=== PATIENT | female | born 1965 | race Caucasian/White ===

== ENCOUNTER 2016-12-24 17:51 | Emergency (ER) | payer OTHER ==
[~2016-12-24] VITALS: Ht 162.6 cm; Wt 72.0 kg
[2016-12-24 17:55] VITALS: Ht 162.6 cm; Wt 72.0 kg
[2016-12-24] MEDS ORDERED: ONDANSETRON 4 MG INJ IV STA (20:51)
[2016-12-24] MEDS ORDERED: morphine 4 MG/ML VIAL IV STA (20:51)
[2016-12-24] MEDS ORDERED: SOD CHLORIDE 0.9% 1,000 ML IV STA (20:51)
--- NOTE | 2016-12-24 20:51 | ERD ---
ER Documentation Chief Complaint Date/Time DATE: 12/24/16 TIME: 20:51 Chief Complaint ap x 1 week HPI 51-year-old female history of diabetes mellitus type 2, breast cancer on tamoxifen, hyperlipidemia, status post remote cholecystectomy ambulatory to the ED complaining of a one-week history of worsening, moderate, sharp and crampy, generalized abdominal pain which localizes to the epigastrium and right greater than left upper quadrant. Nausea but no vomiting. Loose stools but no actual diarrhea or constipation. No relieving or exacerbating factors. Denies dysuria , polyuria, hematuria or flank pain. No vaginal discharge or bleeding. Denies chest pain or palpitations. No shortness of breath or cough. No fevers or chills. ROS All systems reviewed and are negative except as per history of present illness. Medications Home Meds Reported Medications Tamoxifen Citrate* (Tamoxifen Citrate*) 20 Mg Tab, 20 MG PO DAILY, TAB 12/24/16 Ranitidine Hcl* (Ranitidine Hcl*) 150 Mg Tablet, 300 MG PO DAILY, #30 TAB 12/24/16 Atorvastatin* (Atorvastatin*) 40 Mg Tablet, 40 MG PO DAILY, #30 TAB 12/24/16 Metformin Hcl* (Metformin Hcl*) 1,000 Mg Tablet, 1000 MG PO WITH BREAKFAST DINNE , #60 TAB 12/24/16 Allergies Allergies: Coded Allergies: No Known Allergy (Unverified , 12/24/16) PMhx/Soc Reviewed in chart. As per HPI. History of Surgery: Yes (Cholecystectomy) Hx Neurological Disorder: No Hx Respiratory Disorders: No Hx Cardiac Disorders: No Hx Psychiatric Problems: No Hx Miscellaneous Medical Probl: Yes (Diabetes mellitus type 2, breast cancer) Hx Alcohol Use: No Hx Substance Use: No Hx Tobacco Use: No FmHx Multiple family members with diabetes but no stroke or heart disease. Physical Exam Vitals Vital Signs Date Time Temp Pulse Resp B/P Pulse Ox O2 Delivery O2 Flow Rate FiO2 12/24/16 21:06 98.1 78 17 121/58 99 Room Air 12/24/16 17:55 98.1 90 18 129/60 99 Physical Exam Const: Alert, moderate distress due to pain Head: Atraumatic Eyes: Normal Conjunctiva ENT: Normal External Ears, Nose and Mouth. Neck: Full range of motion. Nontender. No lymphadenopathy Resp: Breath sounds are equal and clear to auscultation bilaterally Cardio: Regular rate and rhythm, no murmurs Abd: Soft, obese, diffuse upper abdominal tenderness localized to the epigastrium. No rebound or guarding. Small, nontender umbilical hernia. No masses or abnormal pulsations. Skin: No petechiae or rashes Back: No midline or flank tenderness Ext: No cyanosis, or edema Neur: Awake and alert. No focal deficit observed. Psych: Normal Mood and Affect Result Diagram: 12/24/16209912/24/162099 Results 24 hrs Laboratory Tests Test 12/24/16 21:00 White Blood Count 9.910^3/ul Red Blood Count 4.5010^6/ul Hemoglobin 12.8g/dl Hematocrit 39.4% Mean Corpuscular Volume 87.6fl Mean Corpuscular Hemoglobin 28.4pg Mean Corpuscular Hemoglobin Concent 32.5g/dl Red Cell Distribution Width 13.2% Platelet Count 27895^3/UL Mean Platelet Volume 13.4fl Neutrophils % 60.0% Lymphocytes % 26.0% Monocytes % 4.0% Eosinophils % 10.0% Neutrophils # 5.910^3/ul Lymphocytes # 2.610^3/ul Monocytes # 0.410^3/ul Eosinophils # 1.010^3/ul Urine Color YELLOW Urine Clarity CLEAR Urine pH 5.5 Urine Specific [place] >=1.030 Urine Ketones 15 Urine Nitrite NEGATIVE Urine Bilirubin NEGATIVE Urine Urobilinogen 0.2 E.U./dL Urine Leukocyte Esterase TRACE Urine Microscopic RBC NONE SEEN/HPF Urine Microscopic WBC 2-5/HPF Urine Squamous Epithelial Cells MODERATE Urine Hemoglobin NEGATIVE Urine Glucose NEGATIVE% Urine Total Protein TRACE Sodium Level 142mmol/L Potassium Level 4.0mmol/L Chloride Level 106mmol/L Carbon Dioxide Level 26mmol/L Anion Gap 14 Blood Urea Nitrogen 12mg/dl Creatinine 0.61mg/dl Glucose Level 166mg/dl Calcium Level 10.6mg/dl Total Bilirubin 0.1mg/dl Direct Bilirubin 0.00mg/dl Indirect Bilirubin 0.1mg/dl Aspartate Amino Transf (AST/SGOT) 93IU/L Alanine Aminotransferase (ALT/SGPT) 131IU/L Alkaline Phosphatase 164IU/L Total Protein 7.8g/dl Albumin 4.4g/dl Globulin 3.40g/dl Albumin/Globulin Ratio 1.29 Lipase 243U/L Current Medications Medications (Trade) Dose Ordered Sig/Brian Route PRN Reason Start Time Stop Time Status Last Admin Dose Admin Sodium Chloride (NS) 1,000 ml @ 1,000 mls/hr Q1H STAT IV 12/24/16 20:51 12/24/16 21:50 DC 12/24/16 21:04 Morphine Sulfate (morphine) 4 mg ONCE STAT IV 12/24/16 20:51 12/24/16 20:53 DC 12/24/16 21:03 Ondansetron HCl (Zofran Inj) 4 mg ONCE STAT IV 12/24/16 20:51 12/24/16 20:53 DC 12/24/16 21:03 IV Flush 10 ml 10 ml STK-MED ONCE .ROUTE 12/24/16 21:58 12/24/16 21:59 DC 12/24/16 22:18 Sodium Chloride (NS) 100 ml @ ud STK-MED ONCE .ROUTE 12/24/16 21:58 12/24/16 21:59 DC 12/24/16 22:18 Iohexol (Omnipaque 300mg/ ml) 150 ml STK-MED ONCE .ROUTE 12/24/16 21:58 12/24/16 21:59 DC 12/24/16 22:18 PROCEDURE: CT Abdomen and Pelvis with Contrast CLINICAL INDICATION: No abdominal pain TECHNIQUE: Transaxial images were obtained through the abdomen and pelvis on a multi-slice scanner following the intravenous administration of iodinated contrast. No oral contrast had previously been given. Sagittal and coronal re- formations were subsequently reconstructed. One or more of the following dose reduction techniques were used: - Automated exposure control. - Adjustment of the mA and/or kV according to patient size. - Use of iterative reconstruction technique. Radiation dose: CTDIvol = 19.03 mGy; DLP = 1090.49 mGy-cm. COMPARISON: No prior studies are available for comparison. FINDINGS: Lung bases: Compressive changes with interstitial prominence is noted at the lung bases Liver: The liver is enlarged and mildly diffusely fatty infiltrated with no focal lesion identified. The hepatic and portal veins appear patent. Gallbladder: Surgical lola are seen in the gallbladder fossa. Bile ducts: The intra and extrahepatic bile ducts are normal in caliber. Pancreas: Appears normal with no mass or inflammation evident. Spleen: Normal in size with no focal lesion. Adrenals: Normal with no mass identified. Kidneys, ureters and bladder: A 5 mm cyst is seen within the medial midpole of the left kidney but the kidneys are otherwise unremarkable without evidence of urinary outflow obstruction. There is no perinephric stranding. The ureters are normal in caliber and no ureteroliths are identified. The bladder appears unremarkable. Reproductive organs: The uterus deviates to the right of midline. No adnexal mass is evident. Stomach, bowel, and mesentery: The stomach appears unremarkable. The small bowel gas pattern reflects an ileus most evident within the left upper quadrant were there is slightly greater gaseous distension of a couple of segments of jejunum. A few colonic diverticuli are evident. There is no evidence of bowel obstruction or inflammation. Appendix: A normal vermiform appendix is evident. Peritoneum: No free intraperitoneal fluid or air is identified. A small fat containing umbilical hernia is evident. Aorta: Normal in caliber with no aneurysmal dilatation. IVC: Unremarkable. Lymph nodes: No pathologically enlarged nodes are identified. Osseous structures: Mild degenerative disk and endplate changes are noted L5-S1. IMPRESSION: 1. Hepatomegaly with mild diffuse fatty infiltration but with no focal lesion identified. 2. There is a mild ileus most evident within the left upper quadrant. There are a few colonic diverticuli but there is no evidence of bowel obstruction or inflammation with a normal-appearing vermiform appendix. 3. Status post cholecystectomy with no bile duct dilatation or pancreatic pathology. 4. A 5 mm cyst is seen within the medial midpole left kidney but there is no evidence of urinary outflow obstruction or ureterolithiasis. 5. There is no free intraperitoneal fluid or air. 6. Small fat containing umbilical hernia. Physician Camila Date Time Electronically viewed and signed by Physician Camila on 12/24/2016 23:05 RH/ Procedures/MDM DOCUMENTS REVIEWED: ED nurse, no prior records available ED COURSE: Normal saline 1 L. Morphine 4/Zofran 4 IV. MEDICAL DECISION MAKIN-year-old female history of diabetes mellitus type 2 , breast cancer on tamoxifen, hyperlipidemia, status post remote cholecystectomy ambulatory to the ED complaining of a one-week history of worsening, moderate, sharp and crampy, generalized abdominal pain which localizes to the epigastrium and right greater than left upper quadrant. CT is unremarkable. There is no evidence of metastatic disease, bowel obstruction, obstructive uropathy or other acute intra-abdominal process including but not limited to appendicitis and diverticulitis. Possible gastritis/GERD versus peptic ulcer disease. Pain resolved with intravenous hydration and antiemetics. Stable for discharge with precautionary instructions, proton pump inhibitors and outpatient follow-up as counseled. Patient understands that the etiology of her symptoms is not established and urgent outpatient follow-up is mandatory. Counseled patient and family regarding diagnostic workup, diagnosis and need for followup. Understands to return to ED if symptoms recur, worsen or any other concerns. Departure Diagnosis: Primary Impression: Acute generalized abdominal pain Additional Impressions: Abdominal pain of unknown etiology History of breast cancer in female Diabetes mellitus type 2 in obese Condition: Stable ASHVIN GARCÍA MD Dec 24, 2016 20:51
[2016-12-24 21:12] LABS: ADD SCAN DIFF NO
[2016-12-24 21:15] LABS: ADD UMIC YES; URINE BILIRUBIN (Dip) NEGATIVE (NEGATIVE); URINE BLOOD (Dip) NEGATIVE (NEGATIVE); URINE COLOR YELLOW (YELLOW); URINE GLUCOSE (Dip) NEGATIVE (NEGATIVE); URINE KETONES (Dip) 15 (NEGATIVE); URINE LEUKOCYTE ESTERASE (Dip) TRACE (NEGATIVE); URINE NITRITE (Dip) NEGATIVE (NEGATIVE); URINE TOTAL PROTEIN (Dip) TRACE (NEGATIVE); URINE UROBILINOGEN (Dip) 0.2 E.U./dL (0.1-1.0)
[2016-12-24 21:20] LABS: ABNORMAL IP MESSAGE 1; HEMATOCRIT 39.4 % (37.0-47.0); HEMOGLOBIN 12.8 g/dl (12.0-16.0); MEAN CORPUSCULAR HEMOGLOBIN 28.4 pg (29.0-33.0); MEAN CORPUSCULAR HGB CONC 32.5 g/dl (32.0-37.0); MEAN CORPUSCULAR VOLUME 87.6 fl (82.0-101.0); MEAN PLATELET VOLUME 13.4 fl (7.4-10.4); PLATELET COUNT 248 10^3/UL (140-415); RED CELL DISTRIBUTION WIDTH 13.2 % (11.5-14.5); WHITE BLOOD COUNT 9.9 10^3/ul (4.8-10.8)
[2016-12-24 21:23] LABS: SQUAMOUS EPITHELIAL CELL,UR MODERATE; URINE RBCS NONE SEEN /HPF (0)
[2016-12-24 21:35] LABS: ALBUMIN 4.4 g/dl (3.3-4.9); ALBUMIN/GLOBULIN RATIO 1.29; BILIRUBIN,INDIRECT 0.1 mg/dl (0-1.1); BILIRUBIN,TOTAL 0.1 mg/dl (0.2-1.3); CALCIUM 10.6 mg/dl (8.4-10.2); CREATININE 0.61 mg/dl (0.44-1.00); TOTAL PROTEIN 7.8 g/dl (6.1-8.1)
[2016-12-24] MEDS ORDERED: METF1000 PO (21:55)
[2016-12-24] MEDS ORDERED: ATOR40TA68 PO (21:56)
[2016-12-24] MEDS ORDERED: RANI150T5 PO (21:57)
[2016-12-24] MEDS ORDERED: SOD CHLORIDE 0.9% 100 ML ONE (21:58)
[2016-12-24] MEDS ORDERED: IOHEXOL 300MG/ML 150 ML BTL ONE (21:58)
[2016-12-24] MEDS ORDERED: NOL20 PO (21:59)
[2016-12-24 22:17] LABS: LYMPHOCYTES # 2.6 10^3/ul (0.8-2.9); MONOCYTE # 0.4 10^3/ul (0.3-0.9); NEUTROPHIL # 5.9 10^3/ul (1.6-7.5)
--- NOTE | 2016-12-24 23:05 | RADRPT ---
PROCEDURE: CT Abdomen and Pelvis with Contrast CLINICAL INDICATION: No abdominal pain TECHNIQUE: Transaxial images were obtained through the abdomen and pelvis on a multi-slice scanner following the intravenous administration of iodinated contrast. No oral contrast had previously be en given. Sagittal and coronal re-formations were subsequently reconstructed. One or more of the following dose reduction techniques were used: - Automated exposure control. - Adjustment of the mA and/or kV according to patient size. - Use of iterative reconstruction technique. Radiation dose: CTDIvol = 19.03 mGy; DLP = 1090.49 mGy-cm. COMPARISON: No prior studies are available for comparison. FINDINGS: Lung bases: Compressive changes with interstitial prominence is noted at the lung bases Liver: The liver is enlarged and mildly diffusely fatty infiltrated with no focal lesion identified. The hepatic and portal veins appear patent. Gallbladder: Surgical lola are seen in the gallbladder fossa. Bile ducts: The intra and extrahepatic bile ducts are normal in caliber. Pancreas: Appears normal with no mass or inflammation evident. Spleen: Normal in size with no focal lesion. Adrenals: Normal with no mass identified. Kidneys, ureters and bladder: A 5 mm cyst is seen within the medial midpole of the left kidney but t he kidneys are otherwise unremarkable without evidence of urinary outflow obstruction. There is no p erinephric stranding. The ureters are normal in caliber and no ureteroliths are identified. The blad venancio appears unremarkable. Reproductive organs: The uterus deviates to the right of midline. No adnexal mass is evident. Stomach, bowel, and mesentery: The stomach appears unremarkable. The small bowel gas pattern reflec ts an ileus most evident within the left upper quadrant were there is slightly greater gaseous diste nsion of a couple of segments of jejunum. A few colonic diverticuli are evident. There is no evide nce of bowel obstruction or inflammation. Appendix: A normal vermiform appendix is evident. Peritoneum: No free intraperitoneal fluid or air is identified. A small fat containing umbilical her mohamud is evident. Aorta: Normal in caliber with no aneurysmal dilatation. IVC: Unremarkable. Lymph nodes: No pathologically enlarged nodes are identified. Osseous structures: Mild degenerative disk and endplate changes are noted L5-S1. IMPRESSION: 1. Hepatomegaly with mild diffuse fatty infiltration but with no focal lesion identified. 2. There is a mild ileus most evident within the left upper quadrant. There are a few colonic dive rticuli but there is no evidence of bowel obstruction or inflammation with a normal-appearing vermif orm appendix. 3. Status post cholecystectomy with no bile duct dilatation or pancreatic pathology. 4. A 5 mm cyst is seen within the medial midpole left kidney but there is no evidence of urinary ou tflow obstruction or ureterolithiasis. 5. There is no free intraperitoneal fluid or air. 6. Small fat containing umbilical hernia. Physician Camila Date Time Electronically viewed and signed by Mauricio Morgan Physician on 12/24/2016 23:05 RH/
[2016-12-24] MEDS ORDERED: ONDA4TAB8 PO (23:23)
[2016-12-24] MEDS ORDERED: PANT40TA3 PO (23:23)
[2016-12-24] MEDS ORDERED: TRAM50TA2 PO (23:23)
[2016-12-24 23:28] VITALS: BP 117/62; PULSE 71; RESP 17; TEMP 98.1
== END 2016-12-24 23:30 | disposition home or self-care (01) ==
LOC: E/R 17:51
DX: R10.84 Generalized abdominal pain (principal); E11.9 Type 2 diabetes mellitus without complications; R11.0 Nausea; E66.9 Obesity, unspecified; Z68.27 Body mass index [BMI] 27.0-27.9, adult; Z79.84 Long term (current) use of oral hypoglycemic drugs; Z85.3 Personal history of malignant neoplasm of breast
CPT/HCPCS: 36415; 74177; 80053; 81001; 83690; 85025; 96374; 96375; J2270; J2405; J7030; Q9967; Z7502; Z7610